=== PATIENT | female | born 1935 | race Caucasian/White ===

== ENCOUNTER → 2017-05-22 | Outpatient (CLI) | payer OTHER ==
[~2017-05-22] MED LIST: ASPIRIN325 PO; FISH OIL 1,2001 EAC4 PO; HYDROCODON-ACE1 EAC7 PO; IBUPROFEN 200200 M1 PO; LIPITOR40 MG PO; METAMUCIL POWD288 GM PO; MOBIC7.5 MG PO; MONOPRIL10 MG PO; MONOPRIL20 MG PO; NORCO 5-325 TA1 EACH PO; OSCAL PO; TRAMADOL 50 MG50 MG PO; VITAMIN D-32000 UNIT PO
== END ==
LOC: RAD 01:12
DX: Z12.31 Encounter for screening mammogram for malignant neoplasm of breast (principal)

== ENCOUNTER → 2018-06-03 | Outpatient (CLI) | payer OTHER | LOC: RAD 13:23 | DX: Z12.31 Encounter for screening mammogram for malignant neoplasm of breast (principal) ==

== ENCOUNTER → 2019-06-04 | Outpatient (CLI) | payer OTHER | LOC: RAD 01:28 | DX: Z12.31 Encounter for screening mammogram for malignant neoplasm of breast (principal) ==

== ENCOUNTER → 2020-06-06 | Outpatient (CLI) | payer OTHER | LOC: RAD 06:39 → BC 07:47 | PROVIDERS: ATTEND Family Medicine | DX: Z12.31 Encounter for screening mammogram for malignant neoplasm of breast (principal) ==

== ENCOUNTER → 2020-06-15 | Outpatient (CLI) | payer OTHER | LOC: BC 12:45 | PROVIDERS: ATTEND Radiology Diagnostic Radiology | DX: N63.10 Unspecified lump in the right breast, unspecified quadrant (principal); R92.0 Mammographic microcalcification found on diagnostic imaging of breast ==

== ENCOUNTER → 2020-06-28 | Outpatient (CLI) | payer OTHER ==
--- NOTE | 2020-07-05 13:08 | PATH ---
[facility] [address] [place] [address] PATHOLOGY RPT PROCEDURE Name: ALESIA JUÁREZ Room #: REG [facility] M.R.#: [id number] Admission: 06/28/20 Date of : 31 Discharge: Report #: [id number] Path Case #: [id number] [facility] Accession Number: [id number] . 01 Material submitted: . breast - LEFT BREAST, MEDIAL. Modifiers: left, medial . 01 Clinical history: . LEFT BREAST CALCIFICATIONS . 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 - Negative for invasive carcinoma. (IUV:henny; 06/29/2020) QMS 06/29/2020 1443 Local . 02 Comment: ER and WY are ordered on block A1, the results of these will be reported in an addendum to follow. . Co-review: Dr. Brandie Lucas . Findings of this case are telephoned to Ms. Blanca in our [facility] at 1:41 p.m. on 06/29/2020. ( IUV:henny; 06/29/2020) . 02 Addendum: . Special studies report received from [facility], [address] [place] [address], [address], [place], [address], on case [id number], labeled with their number [id number], dated 07/04/2020. . Breast/Prognostic Marker Analysis . Specimen Site: Lt Breast,lt breast calcs - DCIS Specimen ID #: [id number] . ER (Estrogen Receptor) Present/Positive Percent: 40.00% Analysis: Manual Comments: Staining Intensity: Weak to Moderate. Prognostic groupings are reported only for invasive, primary breast carcinomas. Please disregard the reference ranges to the right. [address] [address] PATHOLOGY RPT PROCEDURE Name: ALESIA JUÁREZ Room #: REG CLI [facility].#: [id number] Admission: 06/28/20 Date of : 31 Discharge: Report #: [id number] Path Case #: [id number] . WY (Progesterone Receptor) Present/Positive Percent: 3.00% Analysis: Manual Comments: Staining Intensity: Weak. Prognostic groupings are reported only for invasive, primary breast carcinomas. Please disregard the reference ranges to the right. . Time to Fixation (Cold Ischemic Time): 3 Minutes Duration of Fixation: 6 to 72 Hours Type of Fixative: 10% Neutral Buffered Formalin . . Comments: ER/PgR testing at [facility]. is performed in compliance with the ASCO/CAP Clinical Practice Guidelines. If the result for ER is less than 1% it is reported as Negative; if the ER result is 1-10% it is reported as Low Positive; if the ER result is greater than 10% it is reported as Positive. If the result for PgR is less than 1% it is reported as Negative; if the PgR result is equal to or greater than 1%, it is reported as Positive. . REF: Emelina KH, Akua DEAN, et al: Estrogen and Progesterone Receptor Testing in Breast Cancer. ASCO/CAP Guideline Update. DOI 10.5858/arpa.3168-3152-BC. . Whole slide image capture is performed using [employer] ([employer]) platform. Image analysis, if ordered, is performed using [employer] software. . at [facility]. Ronen Rodrgiues MD Pathologist . Methodology A rabbit monoclonal antibody (clone SP1) that recognized the Estrogen Receptor is used to perform immunohistochemistry on routinely fixed (formalin) paraffin embedded tissue on the [employer]. The specimen is processed using a secondary antibody-HRP conjugate detection system. The percentage of stained tumor nuclei is determined either manually or by image analysis. This test is intended for in vitro diagnostic use. This test is used for clinical purposes. . A rabbit monoclonal antibody (clone 1E2) that recognized the Progesterone Receptor is used to perform immunohistochemistry on routinely fixed (formalin) paraffin embedded tissue on the [employer] Benchmark. The specimen [address] [address] PATHOLOGY RPT PROCEDURE Name: ALESIA JUÁREZ Room #: REG ELEN Damon#: [id number] Admission: 06/28/20 Date of : 31 Discharge: Report #: [id number] Path Case #: [id number] is processed using a secondary antibody-HRP conjugate detection system. The percentage of stained tumor nuclei is determined either manually or by image analysis. This test is intended for in vitro diagnostic use. This test is used for clinical purposes. . Intended Use: This antibody is intended for in vitro diagnostic (IVD) use. Estrogen Receptor (ER) (SP1) is a rabbit monoclonal antibody (IgG) that is intended for the qualitative detection of estrogen receptor (ER) antigen in sections of formalin-fixed, paraffin-embedded tissue. ER is a rabbit monoclonal antibody that recognizes human estrogen receptor alpha. . This antibody is intended for in vitro diagnostic (IVD) use. Progesterone Receptor (WY) (1E2) is a rabbit monoclonal antibody (IgG) that is intended for the qualitative detection of progesterone receptor (WY) antigen in sections of formalin fixed, paraffin embedded tissue. WY is a rabbit monoclonal antibody that recognizes the A and B forms of the human progesterone receptor. . . Disclaimer: This Test was performed by [facility] at [address] [place] [address], [address]. . [facility] is a business unit of [facility] a wholly-owned subsidiary of [employer]. . This assay has not been validated on decalcified tissues. Results should be interpreted with caution if this specimen was decalcified given the likelihood of false negativity on decalcified specimens. . Any image(s) that accompany this report is/are a customer care representative image(s) only and should not be used to render a diagnosis. . This interpretation is contingent on the specimen and the clinical information received. . For any special tests/stains performed, known positive cells or tissues are tested with each marker and examined to ensure positivity. Positive and negative internal controls, if present, react appropriately. . This analysis is an adjunct to the evaluation of the referring physician and does not represent a final diagnosis. . The immunohistochemistry tests performed at [facility]. were validated on tissue fixed in 10% neutral buffered formalin. The performance characteristics of the tests performed on tissue [address] [address] PATHOLOGY RPT PROCEDURE Name: SHANTAALESIA NICOLE [id number] Admission: 06/28/20 Date of : 31 Discharge: Report #: [id number] Path Case #: [id number] processed in other fixatives is not known. . ER/WY ASCO/CAP guidelines require fixation in neutral buffered formalin for a minimum of 6 and a maximum of 72 hours. Fixation times less than 6 hours may not adequately preserve cell proteins. Fixation times longer than 72 hours may cause excess cross-linking of proteins reducing the antigen available for staining. Either scenario can cause reduced staining; hence false negative results are possible and should be considered for these situations. The time from biopsy/excision to fixation in formalin (cold ischemic time) must be less than 1 hour. Time to fixation (cold ischemic time) greater than 1 hour should be interpreted with caution. REF: Tomasa Fatima, et al. [place] [employer] of Clinical Oncology/College of [place] [employer] Guideline Recommendations for Immunohistochemical Testing of Estrogen and Progesterone Receptors in Breast Cancer. J Clin Oncol. 2009January 17; 28(16): 9911-1880. . A complete copy of the report is on file. . Professional and Technical services performed by [facility]. at [address] [facility], [address] [address]. . (IUV:amj 07/04/2020) . AZJ/07/05/2020 Addendum Electronically Signed by Traic Kasper MD, Pathologist . 02 Electronically signed: . Traci Kasper MD, Pathologist NPI- [id number] . 01 Gross description: . The specimen is received in formalin, labeled "Alesia Juárez, left breast medial" and consists of a white cassette containing multiple needle cores of yellow fibroadipose tissue measuring 2.6 x 2.3 x 0.5 cm which are transferred to cassette A1. Received separately are multiple needle cores of yellow orange fibroadipose tissue measuring 2.8 x 2.0 x 0.5 cm in aggregate which are entirely submitted in A2-A3. The specimen was collected at 11:45 AM on 06/28/2020 and placed in formalin at 11:48 AM. The cold ischemic time is 3 minutes and the total formalin fixation time is greater than 6 hours less than 72 hours. (SDY; 06/28/2020) SYU/SYU 06/29/2020 1444 Local . 02 Pathologist provided ICD-10: D05.12 . 02 CPT . 216346 [address] [address] PATHOLOGY RPT PROCEDURE Name: ALESIA JUÁREZ Room #: REG CL M.R.#: [id number] Admission: 06/28/20 Date of : 31 Discharge: Report #: [id number] Path Case #: [id number] Specimen Comment: A courtesy copy of this report has been sent to [phone], [phone] Specimen Comment: [phone] Specimen Comment: Report sent to / DR NUR Performed at: [address], [place] [id number] MD Carlos Cabello MD Phone: [phone] Performed at: [address] [id number] MD Traci Kasper MD Phone: [phone]
== END | disposition home or self-care (01) ==
LOC: BC 10:06
PROVIDERS: ATTEND Family Medicine
DX: D05.12 Intraductal carcinoma in situ of left breast (principal); R92.1 Mammographic calcification found on diagnostic imaging of breast